=== PATIENT | male | born 1970 | race Two or more races ===

== ENCOUNTER 2019-04-29 09:45 | Inpatient (IN) | payer OTHER ==
[~2019-04-29] VITALS: Ht 177.8 cm; Wt 114.8 kg
== END 2019-05-10 12:56 | disposition home or self-care (01) | DRG 329 ==
LOC: O/R 05-05 06:05 → SURH 05-05 09:45
PROVIDERS: ADMIT Colon & Rectal Surgery
PROC: 07TB4ZZ Resection of Mesenteric Lymphatic, Percutaneous Endoscopic Approach (ICD-10-PCS; 2019-05-05)
PROC: 0DJD8ZZ Inspection of Lower Intestinal Tract, Via Natural or Artificial Opening Endoscopic (ICD-10-PCS; 2019-05-05)
PROC: 4A033R1 Measurement of Arterial Saturation, Peripheral, Percutaneous Approach (ICD-10-PCS; 2019-05-05)
PROC: 3E0F7GC Introduction of Other Therapeutic Substance into Respiratory Tract, Via Natural or Artificial Opening (ICD-10-PCS; 2019-05-05)
PROC: B246ZZZ Ultrasonography of Right and Left Heart (ICD-10-PCS; 2019-05-05)
PROC: 4A12X4Z Monitoring of Cardiac Electrical Activity, External Approach (ICD-10-PCS; 2019-05-05)
PROC: 0DTL4ZZ Resection of Transverse Colon, Percutaneous Endoscopic Approach (ICD-10-PCS; principal; 2019-05-05 17:15)
PROC: 5A1935Z Respiratory Ventilation, Less than 24 Consecutive Hours (ICD-10-PCS; 2019-05-06)
DX: C18.4 Malignant neoplasm of transverse colon (principal); J95.822 Acute and chronic postprocedural respiratory failure; J95.89 Other postprocedural complications and disorders of respiratory system, not elsewhere classified; J98.11 Atelectasis; R59.0 Localized enlarged lymph nodes; G47.33 Obstructive sleep apnea (adult) (pediatric); I10 Essential (primary) hypertension; E66.09 Other obesity due to excess calories; I08.1 Rheumatic disorders of both mitral and tricuspid valves

== ENCOUNTER 2022-04-23 20:23 | Inpatient (IN) | payer OTHER ==
[~2022-04-23] VITALS: Ht 175.3 cm; Wt 158.8 kg
--- NOTE | 2022-04-23 21:02 | NUR ---
SE RECIBE MASCULINO DE 51 ANOS ALERTA Y ORIENTADO X3. REFIERE DOLOR ABDOMINAL LLQ Y EVACUACIONES CON GIO DESDE EL AMY DE NALLELY. VOMITOS X3 EN EL AMY DE HOY. SE MIDEN S/V Y SE UBICA EN AREA DE OBSERVACION PENDIENTE EVALUACION MEDICA.
--- NOTE | 2022-04-23 21:54 | NUR ---
[place]. OFRECIDO POR MIS. A. WILL QUIEN ORIENTA AL PACIENTE SOBRE EL [place]. EXTRAE MUESTRAS DE GIO BAJO MEDIDAS ASEPTICAS ROTULA Y ENVIA AL LABORATORIO. CANALIZA Y ADMINISTRA MEDICAMENTOS LIYA ORDEN MEDICA.
[2022-04-26] MEDS ORDERED: LEVOTHYROXINE25 MC1 (09:40)
[2022-04-26] MEDS ORDERED: RESTORIL30 MG (09:40)
[2022-04-26] MEDS ORDERED: INTESTINEX680 M1 PO (12:16)
[2022-04-26] MEDS ORDERED: LEVOTHYROXINE50 MCG PO (12:16)
[2022-04-26] MEDS ORDERED: CIPRO500 MG PO (12:16)
[2022-04-26] MEDS ORDERED: METRONIDAZOLE500 MG PO (12:16)
[2022-04-26] MEDS ORDERED: PEPCID AC20 MG PO (12:16)
== END 2022-04-26 12:50 | disposition home or self-care (01) | DRG 392 ==
LOC: ER 20:23 → SEC-K 04-24 14:06 → MEDJ 04-24 19:57
PROVIDERS: ADMIT Internal Medicine Geriatric Medicine; ATTEND Internal Medicine Geriatric Medicine
DX: K52.89 Other specified noninfective gastroenteritis and colitis (principal); C18.9 Malignant neoplasm of colon, unspecified; E86.0 Dehydration; E03.9 Hypothyroidism, unspecified; E66.01 Morbid (severe) obesity due to excess calories